=== PATIENT | female | born 1995 | race African-American/Black ===

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

== ENCOUNTER 2017-11-27 15:28 | Emergency (ER) | payer MEDICAID ==
[~2017-11-27] VITALS: Ht 165.1 cm; Wt 59.0 kg
[~2017-11-27 15:28] MED LIST changes: +NAPROSYN500 M1 ORAL
--- NOTE | 2017-11-27 16:19 | Emergency Room Report ---
History of Present Illness General Chief Complaint: Flu Like Symptoms Source: Patient Present Illness HPI 22-year-old female presents to the emergency department complaining of fevers, chills, 8/10 in severity left-sided sore throat with intermittent cough and headache x3 days. Patient reports sore throat is the most significant of her symptoms. Patient reports pain is exacerbated upon swallowing. She denies neck pain/stiffness, photophobia. She reports her headache is dull and intermittent and rated as 4/10 in severity. Denies ear pain, high fevers, l, irritability, dehydration, N/V/D. Denies Cp, Palpitations, LOC, AMS, seizures, paresthesias, or changes in Hearing or vision, no Sudden severe LANDRUM. Allergies: Coded Allergies: No Known Allergies (Unverified , 02/03/16) Patient History Past Medical History: see triage record Past Surgical History: none Pertinent Family History: none Reviewed Nursing Documentation: PMH: Agreed, PSxH: Agreed Nursing Documentation-PMH Past Medical History: No Stated History Review of Systems All Other Systems: negative except mentioned in HPI Physical Exam Vital Signs Date Time Temp Pulse Resp B/P (MAP) Pulse Ox O2 Delivery O2 Flow Rate FiO2 11/27/17 15:34 99.3 125 20 132/88 99 Room Air Sp02 EP Interpretation: reviewed, normal General Appearance: alert, GCS 15, non-toxic, mild distress Head: normocephalic, atraumatic Eyes: bilateral eye normal inspection, bilateral eye PERRL ENT: hearing grossly normal, normal pharynx, normal voice, TMs + canals normal , uvula midline, moist mucus membranes, other - peritonsillar cellulitis- mild fullness visualized in the left posterior pillar/Soft palate are, no fluctuance is palpated however pt. does experience tenderness upon palpation, uvula is midline. Neck: full range of motion Respiratory: lungs clear, normal breath sounds, no respiratory distress, no wheezing, speaking full sentences Cardiovascular #1: regular rate, rhythm, tachycardia Musculoskeletal: back normal, gait/station normal, normal range of motion, non- tender Neurologic: alert, oriented x3, responsive, motor strength/tone normal, sensory intact, speech normal, grossly normal Psychiatric: judgement/insight normal Skin: normal color, no rash, warm/dry, well hydrated Lymphatic: no adenopathy Medical Decision Making PA Attestation Dr. Dodge is my supervising Physician whom patient management has been discussed with. Diagnostic Impression: Primary Impression: Peritonsillar cellulitis Additional Impression: Upper respiratory infection Qualified Codes: J06.9 - Acute upper respiratory infection, unspecified ER Course 22-year-old female presents to the emergency department complaining of fevers, chills, 8/10 in severity left-sided sore throat with intermittent cough and headache x3 days. Patient reports sore throat is the most significant of her symptoms. Patient reports pain is exacerbated upon swallowing. She denies neck pain/stiffness, photophobia. She reports her headache is dull and intermittent and rated as 4/10 in severity. Denies ear pain, high fevers, l, irritability, dehydration, N/V/D. Denies Cp, Palpitations, LOC, AMS, seizures, paresthesias, or changes in Hearing or vision, no Sudden severe LANDRUM. Ddx considered but are not limited to: pharyngitis, strep, [employer], [place]om angina, URI Vital signs: Pt is tachycardic remaining VS are WNL, pt. is afebrile H&PE are most consistent with: peritonsillar cellulitis- mild fullness visualized in the left posterior pillar/Soft palate are, no fluctuance is palpated however pt. does experience tenderness upon palpation, uvula is midline. ORDERS: None required at this time as the diagnosis is clinical ED INTERVENTIONS: - 8mg Decadron IM -1.2mu PCN - G Patient is given strict ED return precautions with worsening or new symptoms. d/w the patient she'll be discharged with conservative human for her symptoms and she is to followup with her primary care provider 3-5 days. DISCHARGE: At this time pt. is stable for d/c to home. Will provide printed patient care instructions, and any necessary prescriptions. Care plan and follow up instructions have been discussed with the patient prior to discharge. Last Vital Signs Date Time Temp Pulse Resp B/P (MAP) Pulse Ox O2 Delivery O2 Flow Rate FiO2 11/27/17 15:34 99.3 125 20 132/88 99 Room Air Disposition: HOME, SELF-CARE Condition: Stable Scripts Lidocaine HCl 2% Viscous (Lidocaine HCl 2% Viscous) 100 Ml Solution 15 ML ORAL QID, #200 ML Prov: Meena Lundberg 11/27/17 Acetaminophen* (TYLENOL EXTRA STRENGTH*) 500 Mg Tablet 500 MG ORAL Q6H Y for Mild Pain/Temp > 100.5, #20 TAB 0 Refills Prov: Meena Lundberg 11/27/17 Codeine/Promethazine Hcl* (PROMETHAZINE-CODEINE SYRUP*) 118 Ml Syrup 5 ML ORAL Q6H Y for For Cough, #120 ML 0 Refills Prov: Meena Lundberg 11/27/17 Departure Forms: Return to Work Return to Work Date: Nov 30, 2017 Work Restrictions: None Return to Full Activity: Nov 30, 2017 Patient Instructions: Peritonsillar Cellulitis Additional Instructions: Take medications as directed. Follow up with a Primary Care Provider in 3-5 days, even if your symptoms have resolved. --Please review list of primary care clinics, if you do not already have a primary care provider !!!!Return sooner to ED if new symptoms occur, or current symptoms become worse. !!!!! Do not drink alcohol, drive, or operate heavy machinery while taking cough syrup as this may cause drowsiness. - Please note that this Emergency Department Report was dictated using [employer] bookmaker technology software, occasionally this can lead to erroneous entry secondary to interpretation by the dictation equipment. Meena Lundberg Nov 27, 2017 16:19
[2017-11-27] MEDS ORDERED: Dexamethasone 4mg/ml vial IM ONE (16:30)
[2017-11-27] MEDS ORDERED: Bicillin LA 1.2 Million Units Syr IM ONE (16:30)
[2017-11-27] MEDS ORDERED: PROMETHAZINE-C118 M1 ORAL (16:52)
[2017-11-27] MEDS ORDERED: LIDOCAINE VISC100 ML ORAL (16:52)
[2017-11-27] MEDS ORDERED: TYLENOL EXTRA500 MG ORAL (16:52)
[2017-11-27 17:11] VITALS: BP 130/84
[2017-11-27 17:18] VITALS: BP 130/84
== END 2017-11-27 17:20 | disposition home or self-care (01) ==
LOC: EMR 16:40
DX: J36 Peritonsillar abscess (principal); J06.9 Acute upper respiratory infection, unspecified
CPT/HCPCS: 96372; 99284; J0561; J1100

== ENCOUNTER 2019-10-21 18:06 | Emergency (ER) | payer MEDICAID ==
[~2019-10-21] VITALS: Ht 162.6 cm; Wt 59.0 kg
[~2019-10-21 18:06] MED LIST changes: +LIDOCAINE VISC100 ML ORAL; +PROMETHAZINE-C118 M1 ORAL; +TYLENOL EXTRA500 MG ORAL
[2019-10-21 18:35] VITALS: BP 111/71
--- NOTE | 2019-10-21 18:35 | NUR ---
ED Nurse Note: Patient arrived from home complaining of left abdominal pain, nausea, and diarrhea x 3 days. She states she did not eat anything abnormal or travel. Denies fever, dizziness, chest pain. Patient on the monitoring and evaluation advisor, bed in lowest position. Blood sent to lab. IV 20g started left AC. Blood sent to lab.
[2019-10-21] MEDS ORDERED: Mylanta II UD 30ml ORAL ONE (18:45)
[2019-10-21 19:13] LABS: BASOPHILS % (AUTO) 1.2 % (0.0-2.0); EOSINOPHILS % (AUTO) 4.8 % (0.0-3.0); HEMATOCRIT 42.6 % (37.0-47.0); HEMOGLOBIN 15.2 G/DL (12.0-16.0); LYMPHOCYTES % (AUTO) 29.6 % (20.0-45.0); MEAN CORPUSCULAR VOLUME 86 FL (80-99); MONOCYTES % (AUTO) 7.6 % (1.0-10.0); NEUTROPHILS % (AUTO) 56.8 % (45.0-75.0); PLATELET COUNT 235 K/UL (150-450); RED BLOOD COUNT 4.93 M/UL (4.20-5.40); RED CELL DISTRIBUTION WIDTH 9.1 % (11.6-14.8); WHITE BLOOD COUNT 9.2 K/UL (4.8-10.8)
[2019-10-21 19:31] LABS: APPEARANCE,URINE SLIGHTLY CLOUDY; BILIRUBIN, URINE NEGATIVE (NEGATIVE); GLUCOSE, URINE (UA) NEGATIVE (NEGATIVE); KETONES,URINE NEGATIVE (NEGATIVE); LEUKOCYTE ESTERASE ,URINE 1+ (NEGATIVE); NITRITE,URINE NEGATIVE (NEGATIVE); PH,URINE 9 (4.5-8.0); PROTEIN,URINE 1+ (NEGATIVE); UROBILINOGEN,URINE 4 MG/DL (0.0-1.0)
[2019-10-21 19:34] LABS: ANION GAP 9 mmol/L (5-15); BLOOD UREA NITROGEN 12 mg/dL (7-18); CARBON DIOXIDE 30 MMOL/L (21-32); CHLORIDE 106 MMOL/L (98-107); CREATININE 0.7 MG/DL (0.55-1.30); POTASSIUM 3.5 MMOL/L (3.5-5.1); SODIUM 144 MMOL/L (136-145)
[2019-10-21 19:36] LABS: COLOR,URINE YELLOW
[2019-10-21 19:38] LABS: ALANINE AMINOTRANSFERASE 16 U/L (12-78); ALBUMIN 4.1 G/DL (3.4-5.0); ALBUMIN/GLOBULIN RATIO 1.1 (1.0-2.7); ALKALINE PHOSPHATASE 64 U/L (46-116); ASPARTATE AMINO TRANSFERASE 13 U/L (15-37); BILIRUBIN,TOTAL 0.7 MG/DL (0.2-1.0)
--- NOTE | 2019-10-21 20:02 | Emergency Room Report ---
History of Present Illness General Chief Complaint: Abdominal Pain Source: Patient Present Illness HPI 24-year-old female with no significant past medical history here complaining of 2 days of multiple bouts of nonbloody diarrhea and emesis. Complains of epigastric and left lower quadrant abdominal pain however is not tender to palpation. Rating the pain 3 out of 10. Denies blood in stool. Denies fever and chills, cough or congestion. Does not recall if symptoms started after eating new food. Denies alcohol consumption, tobacco use however does report that she sometimes smokes marijuana. Denies illicit drug use. Has not taken medication for symptom relief. Patient appears to be stable with stable vital signs. Last menstrual period was 2 weeks ago and regular. Denies urinary symptoms. Allergies: Coded Allergies: No Known Allergies (Unverified , 02/03/16) Patient History Past Medical History: see triage record Past Surgical History: none Pertinent Family History: none Last Menstrual Period: 09/2019 Now: No Immunizations: UTD Reviewed Nursing Documentation: PMH: Agreed; PSxH: Agreed Nursing Documentation-PMH Past Medical History: No Stated History Review of Systems All Other Systems: negative except mentioned in HPI Physical Exam Vital Signs Date Time Temp Pulse Resp B/P (MAP) Pulse Ox O2 Delivery O2 Flow Rate FiO2 10/21/19 18:27 98.6 99 16 111/71 (84) 96 Room Air Sp02 EP Interpretation: reviewed, normal General Appearance: no apparent distress, alert, GCS 15, non-toxic Head: normocephalic, atraumatic Eyes: bilateral eye normal inspection, bilateral eye PERRL ENT: hearing grossly normal, normal pharynx, no angioedema, normal voice Neck: full range of motion, supple, thyroid normal, no meningismus, supple/symm /no masses Respiratory: chest non-tender, lungs clear, normal breath sounds, no rhonchi, no respiratory distress, no retraction, no wheezing, speaking full sentences Cardiovascular #1: regular rate, rhythm, no edema, no murmur Gastrointestinal: normal bowel sounds, non tender, soft, no mass, no organomegaly, no peritonitis, no bruit, non-distended, no guarding, no hernia, no pulsatile mass, no rebound Rectal: deferred Genitourinary: no CVA tenderness Musculoskeletal: back normal Neurologic: alert, motor strength/tone normal, oriented x3, sensory intact, responsive, speech normal Psychiatric: judgement/insight normal, memory normal, mood/affect normal, no suicidal/homicidal ideation Skin: no rash Lymphatic: no adenopathy Medical Decision Making PA Attestation Diagnosis and treatment plans were reviewed and discussed with my supervising physician Dr. Escamilla Diagnostic Impression: Primary Impression: UTI (urinary tract infection) Additional Impression: Abdominal pain ER Course 24-year-old female with no significant past medical history here complaining of 2 days of multiple bouts of nonbloody diarrhea and emesis. Complains of epigastric and left lower quadrant abdominal pain however is not tender to palpation. Rating the pain 3 out of 10. Denies blood in stool. Denies fever and chills, cough or congestion. Does not recall if symptoms started after eating new food. Denies alcohol consumption, tobacco use however does report that she sometimes smokes marijuana. Denies illicit drug use. Has not taken medication for symptom relief. Patient appears to be stable with stable vital signs. Last menstrual period was 2 weeks ago and regular. Denies urinary symptoms. Ddx considered but are not limited to: UTI, pyelonephritis, appendicitis, gastroenteritis, gastritis Vital signs: are WNL, pt. is afebrile H&PE are most consistent with: Abdominal pain most likely secondary to gastroenteritis, UTI ORDERS: UA, urine cx, CBC test dicyclomine, Zofran, Macrobid ED INTERVENTIONS: NS bolus, Zofran, Pepcid, DISCHARGE: At this time pt. is stable for d/c to home. Will provide printed patient care instructions, and any necessary prescriptions. Care plan and follow up instructions have been discussed with the patient prior to discharge. Keep a brat diet, increase oral hydration, take medication as directed, follow -up with your primary care provider, at this time no imaging is needed as patient is not tender to palpation in the abdomen, however if continues to be symptomatic 10 out of 10 pain in the abdomen, fever and chills and multiple bouts of emesis return to emergency room. Last Vital Signs Date Time Temp Pulse Resp B/P (MAP) Pulse Ox O2 Delivery O2 Flow Rate FiO2 10/21/19 18:35 98.6 99 16 111/71 96 Room Air Disposition: HOME, SELF-CARE Condition: Stable Scripts Nitrofurantoin Monohyd/M-Cryst* (MACROBID 100 MG*) 100 Mg Capsule 100 MG ORAL EVERY 12 HOURS for 7 Days, #14 CAP Prov: Michael Stokes 10/21/19 Dicyclomine Hcl* (DICYCLOMINE HCL*) 10 Mg Capsule 10 MG ORAL TID, #10 CAP Prov: Michael Stokes 10/21/19 Ondansetron (Zofran) 4 Mg Tablet 4 MG ORAL Q6H PRN for Nausea & Vomiting, #14 TAB Prov: Michael Stokes 10/21/19 Referrals: NON PHYSICIAN (PCP) Patient Instructions: Abdominal Pain, Adult, Urinary Tract Infection, Easy-to- Read Additional Instructions: Take medication as directed, follow-up with your primary care provider, keep a brat diet consisted of banana, rice, applesauce, piece of toast, increase oral hydration especially electrolyte water. If worsening symptoms return to emergency room. Michael Stokes Oct 21, 2019 20:02
[2019-10-21] MEDS ORDERED: NITROFURANTOIN100 M2 ORAL (20:03)
[2019-10-21] MEDS ORDERED: DICYCLOMINE HCL10 MG ORAL (20:03)
[2019-10-21] MEDS ORDERED: ZOFRAN4 M1 ORAL (20:03)
[2019-10-21 20:14] VITALS: BP 111/71
--- NOTE | 2019-10-21 20:16 | NUR ---
ED Nurse Note: Patient cleared for discharge by ER provider post lab results. patient is A&Ox4, ambulatory with steady gait and has no complaints. Patient verbalized understanding of discharge instructions. ID band and IV removed. Patient departed with all belongings accompanied by her friend to home via personal vehicle.
== END 2019-10-21 20:14 | disposition home or self-care (01) ==
LOC: EMR 19:09
DX: N39.0 Urinary tract infection, site not specified (principal); R10.9 Unspecified abdominal pain
CPT/HCPCS: 36415; 80053; 80307; 81003; 81025; 83690; 85025; 87086; 96361; 96374; J2405; J7030; Z7502; 99284